=== PATIENT | male | born 1940 | race Caucasian/White ===

== ENCOUNTER → 2018-02-11 12:31 | Outpatient (CLI) | payer MEDICARE, OTHER, SELFPAY ==
--- NOTE | 2018-02-11 12:47 | CT_ITS ---
CT soft tissue neck wo con INDICATION: Follow-up soft tissue mass seen on the chest CT ITS.REASON: ABNORMAL CT SCAN, NECK ORDERING PHYSICIAN: Jackeline Espana MD PATIENT AGE: 78 years COMPARISON: 03/30/2017 TECHNIQUE: Axial images are obtained without contrast. Sagittal and coronal reformatted images are reviewed as well. All CT scans at the facility use one or more dose reduction, viz: automated exposure control, ma/kV adjustment per patient size (including targeted exams where dose is matched to indication, i.e. head), or iterative reconstruction technique. FINDINGS: On the chest CT of 03/30/2017 there was a suspected soft tissue mass in the lower neck on the right. The patient's submandibular glands are prominent on both sides. That abnormality seen on the chest CT was likely due to asymmetric prominence of the right submandibular gland. Scattered small lymph nodes are present. No adenopathy or neck mass apparent. The thyroid gland is unremarkable. No retropharyngeal mass. The visualized sinuses have an unremarkable appearance. IMPRESSION: Mildly prominent bilateral submandibular glands which likely account for the abnormality noted on the CT scan with some mild neck rotation on the previous exam. Otherwise negative CT neck without contrast
[2018-02-11 13:11] LABS: Blood Urea Nitrogen 12 mg/dL (7-18); Creatinine,Serum 0.97 mg/dL (0.70-1.30); Estimated Glomerular Filt Rate 75 ml/min (>60); GFR (African American) 91 ML/MIN (>60)
== END ==
PROVIDERS: Family Provider Family Medicine; PCP Family Medicine; Visit Provider Family Medicine
DX: R93.8 Abnormal findings on diagnostic imaging of other specified body structures (principal); R91.1 Solitary pulmonary nodule
CPT/HCPCS: 36415; 70490; 82565; 84520